=== PATIENT | female | born 1990 | race Caucasian/White ===

== ENCOUNTER 2017-03-14 18:02 | Inpatient (IN) | payer OTHER ==
[~2017-03-14] VITALS: Ht 177.8 cm; Wt 81.8 kg
[2017-03-14] VITALS (14 sets, daily range): BP systolic 108–133; BP diastolic 55–77; PULSE 60–83; TEMP 98.1–98.6
[~2017-03-14 18:02] MED LIST: DROSPIRENONE; LOVENOX 4040 MG/0.4 SQ; PERCOCET 325 MG1 TA2 PO; PRENATAL1 TA7 PO
[2017-03-14 19:23] LABS: BASO % 0.3 % (0.0-2.0); EOS # 0.3 (0.0-0.7); EOS % 2.3 % (0-4.0); GRAN # 10.5 (1.4-6.5); GRAN % 73.7 % (42.2-75.2); HEMATOCRIT 38.4 % (37.0-47.0); HEMOGLOBIN 12.7 g/dl (12.5-16.0); LYMPH # 2.4 (1.2-3.4); LYMPH % 16.6 % (20.0-51.0); MEAN CELL VOLUME 81 fl (80.0-100.0); MEAN CORPUSCULAR HEMOGLOBIN 27 pg (27.0-31.0); MEAN CORPUSCULAR HGB CONC 33 g/dl (33.0-37.0); MEAN PLATELET VOLUME 12.6 fl (7.4-10.4); MONO % 6.6 % (1.7-9.3); PLATELET COUNT 231 K/mm3 (130-400); RED BLOOD COUNT 4.76 M/mm3 (4.10-5.30); REDCELL DISTRIBUTION WIDTH-CV 13.9 % (11.5-14.5); WHITE BLOOD COUNT 14.3 K/mm3 (4.8-10.8)
[2017-03-15 00:50] VITALS: BP 115/67; PULSE 65; TEMP 97.8
[2017-03-15 04:20] VITALS: BP 112/62; PULSE 60; TEMP 98.1
[2017-03-15 07:15] VITALS: BP 111/65; PULSE 61; TEMP 97.8
[2017-03-15] MEDS ORDERED: PERCOCET 325 MG1 TA2 PO (10:11)
[2017-03-15] MEDS ORDERED: IBU800 M1 PO (10:11)
[2017-03-15 12:45] VITALS: BP 125/77; PULSE 66; TEMP 98.1
[2017-03-15 17:00] VITALS: BP 103/62; PULSE 86; TEMP 97.7
[2017-03-15 20:15] VITALS: BP 117/73; PULSE 79; TEMP 98.7
[2017-03-16 07:00] VITALS: BP 102/58; PULSE 62; TEMP 97.8
== END 2017-03-16 11:15 | disposition home or self-care (01) | DRG 775 ==
LOC: LDRO 18:02 → OB 18:44 → LDR 18:44 → OB 21:26
PROVIDERS: Obstetrics & Gynecology
PROC: 10E0XZZ Delivery of Products of Conception, External Approach (ICD-10-PCS; principal; 2017-03-14)
DX: O77.0 Labor and delivery complicated by meconium in amniotic fluid (principal); O99.12 Other diseases of the blood and blood-forming organs and certain disorders involving the immune mechanism complicating childbirth; D68.51 Activated protein C resistance; Z3A.38 38 weeks gestation of pregnancy; Z37.0 Single live birth
CPT/HCPCS: J1650; J2590; J2795; J7120

== ENCOUNTER 2020-08-14 08:37 | Inpatient (IN) | payer BC ==
[~2020-08-14] VITALS: Ht 177.8 cm; Wt 88.6 kg
[2020-08-14] VITALS (15 sets, daily range): BP systolic 110–143; BP diastolic 60–90; PULSE 37–78; TEMP 97.2–98.4
[~2020-08-14 08:37] MED LIST changes: +IBU800 M1 PO
--- NOTE | 2020-08-14 09:31 | NUR ---
0805 PATIENT HERE FROM HOME WITH COMPLIANTS OF CONTRACTIONS THAT ARE GETTING STRONGER. EFM ON FHT 125 GOOD ACCELERATIONS NOTED. BABY VERY ACTIVE. CONTRACTIONS EVERY [address] VERGARA CALLED AND ORDERS TO ADMIT AT THIS TIME.
--- NOTE | 2020-08-14 10:47 | NUR ---
1010 PATIENT FEELING ALOT OF PRESSURE. SVE /0 DR VERGARA CALLED TO COME FOR DELIVERY NOW. 1015 DR VERGARA AT BEDSIDE. 1016 PATIENT PUSHES WITH CONTRACTION. BABY BOY BY DR VERGARA. PATIENT TOLERATES WELL. LIDOCAINE USED FOR REPAIR NEEDED. 1019 PLACENTA DELIVERED AND PITOCIN STARTED AT 333 PER PROTOCOL.
--- NOTE | 2020-08-14 15:35 | NUR ---
1500 PATIENT REFUSES THE COVID TESTING
[2020-08-15] VITALS: BP 116/65; PULSE 48; TEMP 97.8
[2020-08-15 04:50] VITALS: BP 103/56; PULSE 57; TEMP 97.7
[2020-08-15 07:30] VITALS: BP 113/70; PULSE 72; TEMP 97.4
[2020-08-15] MEDS ORDERED: IBU600 MG PO (08:58)
--- NOTE | 2020-08-15 09:02 | NUR ---
Initial visit; Parents thanked Fireworks Assembler for offering congratulations and God's blessings for the of their son. Fireworks Assembler thanked family for choosing [facility].
== END 2020-08-15 15:15 | disposition home or self-care (01) | DRG 806 ==
LOC: LDRO 08:37 → OB 10:12 → LDR 10:12 → OB 12:07
PROVIDERS: ADMIT Obstetrics & Gynecology
PROC: 10E0XZZ Delivery of Products of Conception, External Approach (ICD-10-PCS; principal; 2020-08-14)
PROC: 0HQ9XZZ Repair Perineum Skin, External Approach (ICD-10-PCS; 2020-08-14)
PROC: 10907ZC Drainage of Amniotic Fluid, Therapeutic from Products of Conception, Via Natural or Artificial Opening (ICD-10-PCS; 2020-08-14)
DX: O99.12 Other diseases of the blood and blood-forming organs and certain disorders involving the immune mechanism complicating childbirth (principal); D68.51 Activated protein C resistance; Z37.0 Single live birth; O70.0 First degree perineal laceration during delivery; Z3A.39 39 weeks gestation of pregnancy
CPT/HCPCS: J2590; J7120